=== PATIENT | female | born 1980 | race Caucasian/White ===

== ENCOUNTER → 2016-11-30 | Outpatient (CLI) | payer OTHER ==
[~2016-11-30] MED LIST: BENTYL20 MG PO; LOESTRIN 24 FE1 TAB PO; OMEPRAZOLE40 MG PO
--- NOTE | ~2016-11-30 | MR17 ---
[facility] A Service of [facility] RADIOLOGY TEXT RESULTS PATIENT: LORENA CONSTANTINO LOCATION: [facility] : 80 UNIT #: [id number] AGE: [address]: Gino Mckeon MD SEX: F ORDER DR: [id number] [address] [id number] O MR#: [id number] Acc #: [id number] NAME: LORENA CONSTANTINO : 1980 SEX: F STUDY DATE/TIME: 11/30/2016 15:50 UNIT: [facility] ROOM: STUDY DESCRIPTION: MR Brain WWo Contrast Attending Physician: Gino Mckeon M.D. Referring Physician: Gino Mckeon M.D. Ordering Physician: Gino Mckeon M.D. Primary Care Physician: Gino Mckeon M.D. MRI CENTER REPORT This report is preliminary unless electronic signature is present. EXAM Brain MRI with and without contrast. 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 TECHNIQUE Multiplanar imaging of the brain was performed with and without contrast. 20 mL of MultiHance was used. FINDINGS The brain images are normal with no evidence of mass lesion, hemorrhage, or edema. No white matter signal abnormalities are seen to suggest demyelinating disease. No evidence of recent infarct on diffusion weighted imaging. After contrast administration, no abnormal enhancement is seen. Extraaxial structures are unremarkable. IMPRESSION Negative MRI brain with and without contrast. Dictated by... Brian Ribeiro M.D. THIS IS AN ELECTRONICALLY VERIFIED REPORT Brian Ribeiro M.D. at 12/01/2016 3:45 PM RLF/miquel TD: 12/01/2016 10:34 JOB #: [id number] [facility] A Service of [facility] RADIOLOGY TEXT RESULTS PATIENT: LORENA CONSTANTINO LOCATION: [facility] #: [id number] : 80 UNIT #: [id number] AGE: [address]: Gino Mckeon MD SEX: F ORDER DR: MRI CENTER REPORT Page 1 of 1
== END | disposition home or self-care (01) ==
LOC: SMRI 15:24
DX: R20.0 Anesthesia of skin (principal)
CPT/HCPCS: 70553; A9581